=== PATIENT | female | born 1955 | race Caucasian/White ===

== ENCOUNTER → 2024-09-30 12:12 | Outpatient (REF) | payer MEDICARE, SELFPAY | LOC: RAD 12:12 | PROVIDERS: ATTENDING PHYSICIAN Family Medicine | DX: R19.4 Change in bowel habit (principal); R19.8 Other specified symptoms and signs involving the digestive system and abdomen; K57.90 Diverticulosis of intestine, part unspecified, without perforation or abscess without bleeding; R10.84 Generalized abdominal pain | CPT/HCPCS: 74177; Q9967 ==

== ENCOUNTER → 2024-12-02 13:17 | Outpatient (REF) | payer MEDICARE, SELFPAY ==
[2024-12-04 23:45] LABS: tTG IgA Antibody <1.02 FLU (0.00-4.99)
[2024-12-05 00:17] LABS: IgA 253 mg/dl (70-400)
== END ==
LOC: HWLAB 13:17
PROVIDERS: ATTENDING PHYSICIAN Internal Medicine Gastroenterology; FAMILY PHYSICIAN Family Medicine; REFERRING PHYSICIAN Orthopaedic Surgery
DX: R19.4 Change in bowel habit (principal); M25.551 Pain in right hip
CPT/HCPCS: 36415; 73502; 82784; 83516; 86231

== ENCOUNTER → 2025-01-03 12:36 | Outpatient (REF) | payer MEDICARE, SELFPAY | LOC: HWWDC 12:36 | PROVIDERS: ATTENDING PHYSICIAN Family Medicine; REFERRING PHYSICIAN Internal Medicine Gastroenterology | DX: Z12.31 Encounter for screening mammogram for malignant neoplasm of breast (principal); Z78.0 Asymptomatic menopausal state; R19.4 Change in bowel habit | CPT/HCPCS: 77063; 77067; 77080; 82705; 83993; 89055 ==

== ENCOUNTER 2025-01-10 06:21 | Day surgery (SDC) | payer MEDICARE, SELFPAY | END 2025-01-10 14:19 | disposition home or self-care (01) | LOC: GI 06:21 | PROVIDERS: ATTENDING PHYSICIAN Internal Medicine Gastroenterology | DX: Z12.11 Encounter for screening for malignant neoplasm of colon (principal); R19.7 Diarrhea, unspecified; D12.3 Benign neoplasm of transverse colon; Z86.0101 Personal history of adenomatous and serrated colon polyps | CPT/HCPCS: 45385; 45381; 45380; 88305 ==

== ENCOUNTER → 2025-04-12 09:19 | Outpatient (REF) | payer MEDICARE, SELFPAY | LOC: PAVMRI 09:19 | PROVIDERS: ATTENDING PHYSICIAN Orthopaedic Surgery; FAMILY PHYSICIAN Family Medicine | DX: M25.559 Pain in unspecified hip (principal); M16.11 Unilateral primary osteoarthritis, right hip | CPT/HCPCS: 72148; 73721 ==

== ENCOUNTER → 2025-07-26 11:31 | Outpatient (REF) | payer MEDICARE, SELFPAY ==
[2025-07-26 12:45] LABS: Hematocrit 42.1 % (37.0-47.0); Hemoglobin 13.4 g/dL (12.0-16.0); Mean Corp Hgb Conc. 31.8 g/dL (33.0-37.0); Mean Corpuscular Volume 90.5 fL (81.0-99.0); Nucleated Red Blood Cells % 0 %; Platelet Count 168 10^3/uL (130-400); Red Cell Dist. Width 13.1 % (11.5-14.5)
[2025-07-26 13:01] LABS: Blood Urea Nitrogen 18 mg/dl (7-17); Calcium 9.4 mg/dl (8.4-10.2); Carbon Dioxide 32 mmol/L (22-30); Chloride 103 mmol/L (98-107); Glucose 80 mg/dl (70-99); Potassium 4.3 mmol/L (3.5-5.1); Sodium 140 mmol/L (135-145); eGFR > 60.00
== END ==
LOC: REG 11:31
PROVIDERS: ATTENDING PHYSICIAN Orthopaedic Surgery; FAMILY PHYSICIAN Family Medicine
DX: Z01.818 Encounter for other preprocedural examination (principal)
CPT/HCPCS: 36415; 80048; 85025; 93005